=== PATIENT | male | born 1970 | race Caucasian/White ===

== ENCOUNTER 2022-09-09 03:40 | Emergency (ER) | payer BC ==
[~2022-09-09] VITALS: Ht 180.3 cm; Wt 84.4 kg
[2022-09-09] MEDS ORDERED: METOPROLOL TARTRATE 50 MG TABLET ONE (04:12)
[2022-09-09] MEDS ORDERED: METOPROLOL TARTRATE 5 MG/5 ML VIAL IVP ONE ×2 (04:12→04:15)
[2022-09-09] MEDS ORDERED: NITROGLYCERIN OINT 1 GM PACKET TP ONE ×2 (04:12→04:15)
[2022-09-09] MEDS ORDERED: METOPROLOL TARTRATE 50 MG TABLET PO ONE (04:15)
--- NOTE | 2022-09-09 04:15 | NUR ---
Patient a/o x4. NAD noted. Ambulatory with a steady gait. Urine sample provided. Gf at bedside.
[2022-09-09 04:41] LABS: HEMATOCRIT 42.5 % (36.7-47.1); MEAN CORPUSCULAR HEMOGLOBIN 31.7 uug (23.8-33.4); MEAN CORPUSCULAR VOLUME 94.6 fL (73.0-96.2); PLATELET COUNT (AUTO) 261 K/uL (152-348)
[2022-09-09 04:59] LABS: CARBON DIOXIDE 29 mmol/L (21-32); CHLORIDE 101 mmol/L (98-107); CREATININE 0.8 mg/dL (0.6-1.3); GLUCOSE 96 mg/dL (74-106); POTASSIUM 3.6 mmol/L (3.5-5.1); UREA NITROGEN, BLOOD 16 mg/dL (7-18)
[2022-09-09 05:03] LABS: *BILIRUBIN,URIN NEGATIVE (NEGATIVE); *CLARITY,URINE SLIGHTLY CLOUDY (CLEAR); *COLOR,URINE YELLOW (YELLOW); *KETONES,URINE NEGATIVE (NEGATIVE); *UROBILINOGEN,URINE 0.2 E.U./dl (NORMAL); LEUKOCYTE ESTERASE ,URINE NEGATIVE (NEGATIVE); NITRITE, URINE NEGATIVE (NEGATIVE); PH,URINE 8.5 (5.0-8.0); UGLUCOSE NEGATIVE (NEGATIVE)
[2022-09-09 05:10] LABS: *BLOOD, URINE TRACE (NEGATIVE)
--- NOTE | 2022-09-09 05:25 | NUR ---
X-ray at bedside.
[2022-09-09 05:35] LABS: BACTERIA,URINE NONE SEEN /HPF (NONE SEEN); RBC,URINE 0-3 /HPF (0-3); SQUAMOUS EPITHELIAL CELL,UR FEW /HPF (NONE SEEN); WBC,URINE NONE SEEN /HPF (0-3)
[2022-09-09 05:36] LABS: URINE AMORPHOUS URATE MODERATE /HPF
--- NOTE | 2022-09-09 07:00 | NUR ---
Patient discharged to home in stable condition. A/O x 4. NAD noted. Ambulatory with a steady gait. All belongings with patient. Written and verbal after care instructions given. Patient verbalizes understanding of instructions. Stressed follow up or return to ER for worsening s/s.
[2022-09-09 07:01] VITALS: BP 115/61
== END 2022-09-09 07:03 | disposition home or self-care (01) ==
LOC: ER 03:40
DX: R07.89 Other chest pain (principal)
CPT/HCPCS: 99285; 96374; 71045; 80048; 81001; 83036; 83735; 85025; 85379; 84484 ×2; 36415; 93005; J3490; A4663